=== PATIENT | female | born 1980 | race Caucasian/White ===

== ENCOUNTER 2017-07-27 10:36 | Emergency (ER) | payer OTHER ==
[2017-07-27] MEDS: ACETAMINOPHEN 325 MG TAB PO (12:11)
[2017-07-27] MEDS: ONDANSETRON (ODT) 4 MG TAB ODT (12:11)
[2017-07-27 13:00] LABS: URINE BLOOD (Dip) POC Trace-lysed (NEGATIVE); URINE GLUCOSE (Dip) POC Negative (NEGATIVE); URINE KETONES (Dip) POC Trace (NEGATIVE); URINE LEUKOCYTE EST (Dip) POC Negative (NEGATIVE); URINE NITRITE (Dip) POC Negative (NEGATIVE); URINE TOTAL PROTEIN POC Trace (NEGATIVE)
== END 2017-07-27 13:42 | disposition home or self-care (01) ==
LOC: FTE 10:36
DX: S09.90XA Unspecified injury of head, initial encounter (principal); R42 Dizziness and giddiness; F17.210 Nicotine dependence, cigarettes, uncomplicated; V49.40XA Driver injured in collision with unspecified motor vehicles in traffic accident, initial encounter
CPT/HCPCS: 70450; 72125; 81003; 81025; 99285-25

== ENCOUNTER 2018-10-22 15:20 | Emergency (ER) | payer OTHER ==
[2018-10-22] MEDS: MECLIZINE 12.5 MG TAB PO (15:58)
[2018-10-22] MEDS: ONDANSETRON (ODT) 4 MG TAB ODT (15:58)
[2018-10-22 16:08] LABS: URINE PH (Dip) POC 5.5 (5.0-8.5)
[2018-10-22 16:08] LABS: URINE BLOOD (Dip) POC 1+ (NEGATIVE); URINE GLUCOSE (Dip) POC Negative (NEGATIVE); URINE KETONES (Dip) POC 3+ (NEGATIVE); URINE LEUKOCYTE EST (Dip) POC Negative (NEGATIVE); URINE NITRITE (Dip) POC Negative (NEGATIVE); URINE TOTAL PROTEIN POC 1+ (NEGATIVE)
== END 2018-10-22 17:12 | disposition home or self-care (01) ==
LOC: FTE 15:20
DX: R42 Dizziness and giddiness (principal); F17.210 Nicotine dependence, cigarettes, uncomplicated
CPT/HCPCS: 70450; 81003; 81025; 93005; 99284-25